=== PATIENT | male | born 1980 | race American Indian/Alaskan Native ===

== ENCOUNTER 2019-09-29 12:53 | Emergency (ER) | payer OTHER ==
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
[2019-09-29 17:10] VITALS: BP 146/100
== END 2019-09-29 17:08 | disposition home or self-care (01) ==
LOC: ED 12:53
DX: M79.18 Myalgia, other site (principal); M54.2 Cervicalgia; M54.9 Dorsalgia, unspecified; J45.909 Unspecified asthma, uncomplicated
CPT/HCPCS: 99282

== ENCOUNTER 2020-07-18 12:52 | Emergency (ER) | payer SELFPAY ==
--- NOTE | 2020-07-18 13:54 | Emergency Department Report ---
Blank Doc - Documentation Documentation: 40-year-old male sent by PCP for low H/H and iron. This initial assessment/diagnostic orders/clinical plan/treatment(s) is/are subject to change based on patient's health status, clinical progression and re- assessment by fellow clinical providers in the ED. Further treatment and workup at subsequent clinical providers discretion. Patient/guardians urged not to elope from the ED as their condition may be serious if not clinically assessed and managed. Initial orders include: 1- Patient sent to MAIN ED for further evaluation and treatment 2- labs
[2020-07-18 14:17] LABS: Basophils % (Auto) 1.2 % (0.0-1.8); Eosinophils # (Auto) 0.2 K/mm3 (0.0-0.4); Eosinophils % (Auto) 4.4 % (0.0-4.3); Hematocrit 29.2 % (35.5-45.6); Hemoglobin 8.7 gm/dl (11.8-15.2); Lymphocytes # (Auto) 1.4 K/mm3 (1.2-5.4); Lymphocytes % (Auto) 33.9 % (13.4-35.0); Mean Corpuscular HGB Conc 30 % (32-34); Mean Corpuscular Volume 69 fl (84-94); Monocytes # (Auto) 0.4 K/mm3 (0.0-0.8); Monocytes % (Auto) 9.2 % (0.0-7.3); Platelet Count 486 K/mm3 (140-440); Red Blood Count 4.22 M/mm3 (3.65-5.03); Red Cell Distribution Width 15.7 % (13.2-15.2)
[2020-07-18 14:26] LABS: INR 1.01 (0.87-1.13)
[2020-07-18 14:27] LABS: Partial Thromboplastin Time 26.6 Sec. (24.2-36.6)
[2020-07-18 14:35] LABS: Alanine Aminotransferase 11 units/L (7-56); Albumin 4.2 g/dL (3.9-5); BUN/Creatinine Ratio 18; Blood Urea Nitrogen 14 mg/dL (9-20); Calcium 9.8 mg/dL (8.4-10.2); Hemolysis Index 5
--- NOTE | 2020-07-18 17:53 | Emergency Department Report ---
ED General Adult HPI - General Chief complaint: Recheck/Abnormal Lab/Rx Stated complaint: LABS Time Seen by Provider: 07/18/20 13:53 Source: patient Mode of arrival: Ambulatory Limitations: No Limitations - History of Present Illness Initial comments: Patient is a 40-year-old male presents emergency room with complaints of abnormal lab work at his primary care office. Patient states that he had routine lab work drawn at his primary care office and received the results today and was advised to be seen in the emergency department. He states he had low iron and low H&H. He denies ever having this in the past. He states he does have a family history of iron deficiency anemia. He denies any symptoms at all. He denies any fever, shortness of breath, headache, dizziness, lightheadedness, hematochezia, melena, hematemesis, abd pain, bright red blood per rectum, any symptoms. He states he has never had a colonoscopy. he states his PCP is discu ssing scheduling a routine colonoscopy but he is not having any symptoms. He has a past medical history of HIV. No allergies to medications. - Related Data Previous Rx's Medication Instructions Recorded Last Taken Type Cyclobenzaprine [Flexeril] 10 mg PO QHS PRN #20 tablet 09/29/19 Unknown Rx Ibuprofen [Motrin 800 MG tab] 800 mg PO Q8HR PRN #30 tablet 09/29/19 Unknown Rx Docusate Sodium [Colace] 100 mg PO BID #60 capsule 07/18/20 Unknown Rx Ferrous Sulfate [Ferrous Sulfate 324 mg PO DAILY #60 tablet. 07/18/20 Unknown Rx 324 MG] Allergies Allergy/AdvReac Type Severity Reaction Status Date / Time No Known Allergies Allergy Verified 09/29/19 12:57 ED Review of Systems ROS: Stated complaint: LABS Other details as noted in HPI Comment: All other systems reviewed and negative ED Past Medical Hx - Past Medical History Previous Medical History?: Yes Hx Asthma: Yes Hx HIV: Yes (AP-Tripola) - Surgical History Past Surgical History?: No - Social History Smoking Status: Never Smoker Substance Use Type: None - Medications Home Medications: Home Medications Medication Instructions Recorded Confirmed Last Taken Type Cyclobenzaprine [Flexeril] 10 mg PO QHS PRN #20 tablet 09/29/19 Unknown Rx Ibuprofen [Motrin 800 MG tab] 800 mg PO Q8HR PRN #30 tablet 09/29/19 Unknown Rx Docusate Sodium [Colace] 100 mg PO BID #60 capsule 07/18/20 Unknown Rx Ferrous Sulfate [Ferrous Sulfate 324 mg PO DAILY #60 tablet. 07/18/20 Unknown Rx 324 MG] ED Physical Exam - General Limitations: No Limitations General appearance: alert, in no apparent distress - Head Head exam: Present: atraumatic, normocephalic - Eye Eye exam: Present: normal appearance - ENT ENT exam: Present: mucous membranes moist - Respiratory Respiratory exam: Present: normal lung sounds bilaterally. Absent: respiratory distress, wheezes, rales, rhonchi, stridor, chest wall tenderness, accessory muscle use, decreased breath sounds, prolonged expiratory - Cardiovascular Cardiovascular Exam: Present: regular rate, normal rhythm, normal heart sounds. Absent: systolic murmur, diastolic murmur, rubs, gallop - Neurological Exam Neurological exam: Present: alert, oriented X3 - Psychiatric Psychiatric exam: Present: normal affect, normal mood - Skin Skin exam: Present: warm, dry, intact ED Course Vital Signs 07/18/20 13:17 Pulse Rate 101 H Respiratory 16 Rate Blood Pressure 149/83 [Right] O2 Sat by Pulse 98 Oximetry ED Medical Decision Making - Lab Data Result diagrams: 07/18/20 14:02 07/18/20 14:02 Lab Results 07/18/20 07/18/20 07/18/20 Range/Units 14:02 14:02 14:02 WBC 4.0 L (4.5-11.0) K/mm3 RBC 4.22 (3.65-5.03) M/mm3 Hgb 8.7 L (11.8-15.2) gm/dl Hct 29.2 L (35.5-45.6) % MCV 69 L (84-94) fl MCH 21 L (28-32) pg MCHC 30 L (32-34) % RDW 15.7 H (13.2-15.2) % Plt Count 486 H (140-440) K/mm3 Lymph % (Auto) 33.9 (13.4-35.0) % Grand % (Auto) 9.2 H (0.0-7.3) % Eos % (Auto) 4.4 H (0.0-4.3) % Baso % (Auto) 1.2 (0.0-1.8) % Lymph # (Auto) 1.4 (1.2-5.4) K/mm3 Grand # (Auto) 0.4 (0.0-0.8) K/mm3 Eos # (Auto) 0.2 (0.0-0.4) K/mm3 Baso # (Auto) 0.0 (0.0-0.1) K/mm3 Seg Neutrophils % 51.3 (40.0-70.0) % Seg Neutrophils # 2.1 (1.8-7.7) K/mm3 PT 13.4 (12.2-14.9) Sec. INR 1.01 (0.87-1.13) APTT 26.6 (24.2-36.6) Sec. Sodium 139 (137-145) mmol/L Potassium 4.2 (3.6-5.0) mmol/L Chloride 102.3 (98-107) mmol/L Carbon Dioxide 23 (22-30) mmol/L Anion Gap 18 mmol/L BUN 14 (9-20) mg/dL Creatinine 0.8 (0.8-1.3) mg/dL Estimated GFR > 60 ml/min BUN/Creatinine Ratio 18 % Glucose 143 H (75-100) mg/dL Calcium 9.8 (8.4-10.2) mg/dL Total Bilirubin 0.20 (0.1-1.2) mg/dL AST 13 (5-40) units/L ALT 11 (7-56) units/L Alkaline Phosphatase 70 (35-129) units/L Total Protein 8.0 (6.3-8.2) g/dL Albumin 4.2 (3.9-5) g/dL Albumin/Globulin Ratio 1.1 % - Medical Decision Making Patient is a 40-year-old male presents emergency room with complaints of abnormal lab work at his primary care office. Patient states that he had rou kennedy lab work drawn at his primary care office and received the results today and was advised to be seen in the emergency department. He states he had low iron and low H&H. He denies ever having this in the past. He states he does have a family history of iron deficiency anemia. He denies any symptoms at all. He denies any fever, shortness of breath, headache, dizziness, lightheadedness, hematochezia, melena, hematemesis, abd pain, bright red blood per rectum, any symptoms. He states he has never had a colonoscopy. he states his PCP is discussing scheduling a routine colonoscopy but he is not having any symptoms. He has a past medical history of HIV. No allergies to medications. Vitals are stable. No abnormality on physical exam as documented in chart. Labs show microcytic anemia with H/H 8.7/29.2. H/H is stable. Patient is not having any anemia symptoms. Patient is not having any bleeding. Patient will be given prescription for ferrous sulfate and Colace. Advised patient Please take medication as prescribed. Increase your water intake. Please increase iron in your diet. Follow-up with your primary care doctor. Please discuss with your primary care doctor about referral to hematology. Please discuss with your primary care doctor about colonoscopy. Return to emergency room immediately for any new or worsening symptoms or if you began experiencing symptoms. Critical care attestation.: If time is entered above; I have spent that time in minutes in the direct care of this critically ill patient, excluding procedure time. ED Disposition Clinical Impression: Iron deficiency anemia Qualifiers: Iron deficiency anemia type: unspecified iron deficiency Qualified Code(s): D50.9 - Iron deficiency anemia, unspecified Disposition: DC- TO HOME OR SELFCARE Is pt being admited?: No Does the pt Need Aspirin: No Condition: Stable Instructions: Iron Rich Diet (ED), Iron Deficiency Anemia (ED) Additional Instructions: Please take medication as prescribed. Increase your water intake. Please increase iron in your diet. Follow-up with your primary care doctor. Please discuss with your primary care doctor about referral to hematology. Please discuss with your primary care doctor about colonoscopy. Return to emergency room immediately for any new or worsening symptoms or if you began experiencing symptoms. Prescriptions: Docusate Sodium [Colace] 100 mg PO BID #60 capsule Ferrous Sulfate [Ferrous Sulfate 324 MG] 324 mg PO DAILY #60 tablet. Referrals: your, primary care doctor [Other] - 2-3 Days Time of Disposition: 17:51 Print Language: ALBANIAN
[2020-07-18 19:19] VITALS: BP 118/66
== END 2020-07-18 17:19 | disposition home or self-care (01) ==
LOC: ED 12:52
DX: D50.9 Iron deficiency anemia, unspecified (principal); I10 Essential (primary) hypertension; Z21 Asymptomatic human immunodeficiency virus [HIV] infection status; Z79.899 Other long term (current) drug therapy
CPT/HCPCS: 36415; 80053; 85025; 85610; 85730; 99283

== ENCOUNTER 2021-08-01 08:23 | Emergency (ER) | payer OTHER ==
[2021-08-01 08:50] VITALS: BP 150/81
[2021-08-01] MEDS ORDERED: IBUPROFEN 800 MG TAB PO ONE (09:56)
--- NOTE | 2021-08-01 09:57 | Emergency Department Report ---
ED General Adult HPI - General Chief complaint: Extremity Injury, Lower Stated complaint: LT LEG PAIN Time Seen by Provider: 08/01/21 09:01 Source: patient Mode of arrival: Ambulatory Limitations: No Limitations - History of Present Illness Initial comments: Patient presents with complaints of left great toe and second toe pain after a stubbing injury 1 week ago. He states there was some bruising and swelling that has improved. He also reports some tingling in the toes. Past medical history includes HIV and state patient states he is compliant on ART. No history of diabetes. He rates his pain as a 7/10 in severity and states is not improving with Tylenol. - Related Data Previous Rx's Medication Instructions Recorded Last Taken Type Cyclobenzaprine [Flexeril] 10 mg PO QHS PRN #20 tablet 09/29/19 Unknown Rx Ibuprofen [Motrin 800 MG tab] 800 mg PO Q8HR PRN #30 tablet 09/29/19 Unknown Rx Docusate Sodium [Colace] 100 mg PO BID #60 capsule 07/18/20 Unknown Rx Ferrous Sulfate [Ferrous Sulfate 324 mg PO DAILY #60 tablet.dr 07/18/20 Unknown Rx 324 MG] Diclofenac 1% [Diclofenac 1% 100 gm TP QID PRN #1 gel..gram. 08/01/21 Unknown Rx topical gel] Naproxen 500 mg PO BID PRN #20 tablet 08/01/21 Unknown Rx Allergies Allergy/AdvReac Type Severity Reaction Status Date / Time No Known Allergies Allergy Verified 09/29/19 12:57 ED Review of Systems ROS: Stated complaint: LT LEG PAIN Other details as noted in HPI Constitutional: denies: chills, fever, malaise Musculoskeletal: joint swelling, arthralgia Neurological: paresthesias. denies: numbness ED Past Medical Hx - Past Medical History Hx Asthma: Yes Hx HIV: Yes (AP-Tripola) - Surgical History Past Surgical History?: No - Social History Smoking Status: Never Smoker Substance Use Type: None - Medications Home Medications: Home Medications Medication Instructions Recorded Confirmed Last Taken Type Cyclobenzaprine [Flexeril] 10 mg PO QHS PRN #20 tablet 09/29/19 Unknown Rx Ibuprofen [Motrin 800 MG tab] 800 mg PO Q8HR PRN #30 tablet 09/29/19 Unknown Rx Docusate Sodium [Colace] 100 mg PO BID #60 capsule 07/18/20 Unknown Rx Ferrous Sulfate [Ferrous Sulfate 324 mg PO DAILY #60 tablet. 07/18/20 Unknown Rx 324 MG] Diclofenac 1% [Diclofenac 1% 100 gm TP QID PRN #1 gel..gram. 08/01/21 Unknown Rx topical gel] Naproxen 500 mg PO BID PRN #20 tablet 08/01/21 Unknown Rx ED Physical Exam - General Limitations: No Limitations General appearance: alert, in no apparent distress - Head Head exam: Present: atraumatic, normocephalic - Eye Eye exam: Present: normal appearance - Respiratory Respiratory exam: Absent: respiratory distress - Cardiovascular Cardiovascular Exam: Present: regular rate - Extremities Exam Extremities exam: Present: other (Tenderness to palpation noted at the second MCP joint without skin changes, swelling, or bruising noted; normal capillary refill in all 5 digits; normal pedal pulse; full range of motion of the toes and foot and ankle) - Neurological Exam Neurological exam: Present: alert, oriented X3, normal gait - Psychiatric Psychiatric exam: Present: normal affect, normal mood - Skin Skin exam: Present: warm, dry, intact, normal color. Absent: rash ED Course Vital Signs 08/01/21 08:45 Temperature 98 F Pulse Rate 100 H Respiratory 16 Rate Blood Pressure 150/81 [Left] O2 Sat by Pulse 100 Oximetry ED Medical Decision Making - Radiology Data Radiology results: report reviewed Left foot, 3 views HISTORY: First and second MCP pain after injury COMPARISON: None FINDINGS: No acute fracture or malalignment. Lisfranc interval is preserved. No significant arthritis. Soft tissues are unremarkable. IMPRESSION: No acute process - Medical Decision Making Patient presents with complaints of left great toe and second toe pain after a stubbing injury 1 week ago. He states there was some bruising and swelling that has improved. He also reports some tingling in the toes. Past medical history includes HIV and state patient states he is compliant on ART. No history of diabetes. He rates his pain as a 7/10 in severity and states is not improving with Tylenol. Tenderness to palpation at the second MCP joint of the left foot noted on exam without other abnormalities. X-rays negative for any acute abnormalities. Will treat for foot sprain with hard postop shoe and NSAIDs as needed for pain. Patient to follow-up with podiatry as needed. He is well-appearing, his vitals are normal, he is stable for discharge home. Strict return precautions discuss ed in detail with patient who verbalized understanding. Critical care attestation.: If time is entered above; I have spent that time in minutes in the direct care of this critically ill patient, excluding procedure time. ED Disposition Clinical Impression: Injury of left foot Disposition: HOME / SELF CARE / HOMELESS Is pt being admited?: No Condition: Stable Additional Instructions: The x-ray of your foot is normal. If your symptoms continue, please follow-up with podiatry for further evaluation. Prescriptions: Diclofenac 1% [Diclofenac 1% topical gel] 100 gm TP QID PRN #1 gel..gram. PRN Reason: pain Naproxen 500 mg PO BID PRN #20 tablet PRN Reason: pain Referrals: JESSICA HUANG DPM [Staff Physician] - as needed Forms: Work/School Release Form(ED)
--- NOTE | 2021-08-01 10:22 | XRay Report ---
Left foot, 3 views HISTORY: First and second MCP pain after injury COMPARISON: None FINDINGS: No acute fracture or malalignment. Lisfranc interval is preserved. No significant arthritis . Soft tissues are unremarkable. IMPRESSION: No acute process Signer Name: Tanvir Butterfield MD Signed: 08/01/2021 10:18 AM Workstation Name: [id number]
== END 2021-08-01 12:10 | disposition home or self-care (01) ==
LOC: ED 08:23
DX: S93.692A Other sprain of left foot, initial encounter (principal); J45.909 Unspecified asthma, uncomplicated; Z21 Asymptomatic human immunodeficiency virus [HIV] infection status; X58.XXXA Exposure to other specified factors, initial encounter; Y93.89 Activity, other specified; Y92.89 Other specified places as the place of occurrence of the external cause; Y99.8 Other external cause status
CPT/HCPCS: 99283